=== PATIENT | male | born 1975 | race Two or more races ===

== ENCOUNTER 2021-12-25 09:52 | Emergency (ER) | payer OTHER ==
[2021-12-25] MEDS ORDERED: KETOROLAC TROMETHAMINE 30 MG/1 ML VIAL IM ONE (10:51)
[2021-12-25 11:13] VITALS: BP 157/92; PULSE 101; TEMP 98.1; BMI 37.5
[2021-12-25] MEDS ORDERED: KETOROLAC TROMETHAMINE 30 MG/1 ML VIAL ONE (11:17)
== END 2021-12-25 10:55 | disposition home or self-care (01) ==
LOC: JERFT 09:52
PROC: 3E0233Z Introduction of Anti-inflammatory into Muscle, Percutaneous Approach (ICD-10-PCS; principal; 2021-12-25)
DX: M54.32 Sciatica, left side (principal)
CPT/HCPCS: 99283-25

== ENCOUNTER 2022-01-05 22:34 | Emergency (ER) | payer OTHER ==
[2022-01-05 22:46] VITALS: TEMP 97.8; BMI 37.9
[2022-01-06] MEDS ORDERED: KETOROLAC TROMETHAMINE 30 MG/1 ML VIAL IM ONE (00:09)
[2022-01-06] MEDS ORDERED: LIDOCAINE 5% TOPICAL PATCH TP ONE (00:09)
[2022-01-06] MEDS ORDERED: LIDOCAINE 5% TOPICAL PATCH ONE (00:24)
[2022-01-06] MEDS ORDERED: KETOROLAC TROMETHAMINE 30 MG/1 ML VIAL ONE (00:24)
[2022-01-06 04:09] VITALS: BP 152/98; PULSE 98
[2022-01-06] MEDS ORDERED: LIDOCAINE PATCH REMOVAL MC ONE (13:00)
== END 2022-01-06 04:09 | disposition home or self-care (01) ==
LOC: JER 22:34
PROC: 3E023GC Introduction of Other Therapeutic Substance into Muscle, Percutaneous Approach (ICD-10-PCS; principal; 2022-01-05)
DX: M54.50 Low back pain, unspecified (principal)
CPT/HCPCS: 99284-25